=== PATIENT | female | born 1980 | race Two or more races ===

== ENCOUNTER 2023-08-19 18:26 | Emergency (ER) | payer MEDICAID ==
[~2023-08-19] VITALS: Ht 165.1 cm; Wt 81.0 kg
[2023-08-19] MEDS ORDERED: IBUP-45 PO (18:30)
[2023-08-19] MEDS ORDERED: IBUPROFEN 800 MG TABLET PO ONE (19:30)
[2023-08-19] MEDS ORDERED: ACETAMINOPHEN 500 MG TABLET PO ONE (19:30)
[2023-08-19 19:42] LABS: COVID AG,FIA SOURCE NASAL SWAB
[2023-08-19 19:48] LABS: APPEARANCE,URINE CLEAR (CLEAR); BILIRUBIN,URINE NEGATIVE (NEGATIVE); COLOR,URINE LIGHT YELLOW (YELLOW); GLUCOSE, URINE (UA) NEGATIVE (NEGATIVE); KETONES,URINE NEGATIVE (NEGATIVE); LEUKOCYTE ESTERASE ,URINE SMALL (NEGATIVE); NITRATE,URINE POSITIVE (NEGATIVE); OCCULT BLOOD,URINE MODERATE (NEGATIVE); PROTEIN,URINE TRACE mg/dL (NEGATIVE); UROBILINOGEN,URINE <=1.0 mg/dL (<=1.0)
[2023-08-19 20:06] LABS: SARS-COV2 (COVID) ANTIGEN,FIA Negative (Negative)
[2023-08-19 20:07] LABS: INFLUENZA TYPE A NEGATIVE FOR TYPE A (NEGATIVE); INFLUENZA TYPE B NEGATIVE FOR TYPE B (NEGATIVE)
[2023-08-19 20:20] LABS: BACTERIA,URINE Moderate /HPF (None Seen); RBC,URINE 0-2 /HPF (0-2); SQUAMOUS EPITHELIAL CELL,UR Few /LPF (None Seen)
[2023-08-19] MEDS ORDERED: SODIUM CHLORIDE 0.9% 1,000 ML IV ONE (20:45)
[2023-08-19 21:16] LABS: BASOPHILS % (AUTO) 0.3 % (0.0-2.0); EOSINOPHILS % (AUTO) 0.2 % (1.0-6.0); HEMATOCRIT 34.1 % (36-46); HEMOGLOBIN 11.1 g/dL (12.0-16.0); LYMPHOCYTES # (AUTO) 0.7 K/uL (1.0-4.8); LYMPHOCYTES % (AUTO) 9.1 % (22.0-44.0); MEAN CORPUSCULAR HEMOGLOBIN 25.1 pg (26.0-34.0); MEAN CORPUSCULAR HGB CONC 32.6 G/dL (31.0-37.0); MEAN CORPUSCULAR VOLUME 77 fL (80-100); MONOCYTES # (AUTO) 0.6 K/uL (0.1-1.0); MONOCYTES % (AUTO) 7.2 % (2.0-9.0); NEUTROPHILS # (AUTO) 6.8 K/uL (1.8-7.7); NEUTROPHILS % (AUTO) 83.2 % (40.0-70.0); PLATELET COUNT (AUTO) 247 K/uL (150-450); RED BLOOD CELL COUNT(AUTO) 4.43 MIL/uL (4.00-5.20); RED CELL DISTRIBUTION WIDTH 17.3 % (11.5-14.5); WHITE BLOOD COUNT (AUTO) 8.1 K/uL (4.5-11.0)
[2023-08-19] MEDS ORDERED: CEPHALEXIN MONOHYDRATE 500 MG CAPSULE PO ONE (21:30)
[2023-08-19 21:33] LABS: ANION GAP 12 mmol/L (8-16); CALCIUM, TOTAL 8.8 mg/dL (8.8-10.5); CARBON DIOXIDE 22 mmol/L (22-29); CHLORIDE 100 mmol/L (98-107); CREATININE 0.91 mg/dL (0.60-1.30); GLOMERULAR FILTR. RATE CALC > 60 mL/min (>60); GLUCOSE,RANDOM 124 mg/dL (70-110); POTASSIUM 3.6 mmol/L (3.5-5.1); SODIUM SERUM 134 mmol/L (136-145); UREA NITROGEN, BLOOD 13 mg/dL (7-18)
[2023-08-19 21:37] LABS: ALANINE AMINOTRANSFERASE 19 U/L (12-78); ALBUMIN 3.3 g/dL (3.4-5.0); ALKALINE PHOSPHATASE 67 U/L (46-116); ASPARTATE AMINOTRANSFERASE 12 U/L (15-37); BILIRUBIN,TOTAL 0.4 mg/dL (0.1-1.0); HCG,QUANTITATIVE < 1 mIU/mL (0-6); LIPASE 25 U/L (16-77); TOTAL PROTEIN, SERUM 7.6 g/dL (6.4-8.2)
[2023-08-19] MEDS ORDERED: CEPH-558 PO ×2 (22:29→22:35)
[2023-08-19 23:30] VITALS: BP 119/63; PULSE 62; RESP 16; TEMP 99.3
== END 2023-08-20 02:00 | disposition home or self-care (01) ==
LOC: EMS 18:28
DX: N39.0 Urinary tract infection, site not specified (principal); Z90.49 Acquired absence of other specified parts of digestive tract; Z98.890 Other specified postprocedural states; Z20.822 Contact with and (suspected) exposure to COVID-19
CPT/HCPCS: 74176; 80053; 81001; 83690; 84702; 85025; 87086; 87186; 87804; 99284

== ENCOUNTER 2024-03-09 10:21 | Emergency (ER) | payer MEDICAID, OTHER ==
[~2024-03-09] VITALS: Ht 167.6 cm; Wt 87.0 kg
[~2024-03-09 10:21] MED LIST: CEPH-558 PO; IBUP-45 PO
[2024-03-09 10:23] VITALS: TEMP 98
[2024-03-09 10:58] LABS: APPEARANCE,URINE TURBID (CLEAR); BILIRUBIN,URINE NEGATIVE (NEGATIVE); COLOR,URINE YELLOW (YELLOW); GLUCOSE, URINE (UA) NEGATIVE (NEGATIVE); KETONES,URINE NEGATIVE (NEGATIVE); LEUKOCYTE ESTERASE ,URINE LARGE (NEGATIVE); NITRATE,URINE POSITIVE (NEGATIVE); OCCULT BLOOD,URINE MODERATE (NEGATIVE); PH,URINE 6.5 (5.0-8.0); PROTEIN,URINE 30-70 mg/dL (NEGATIVE); SPECIFIC GRAVITIY, URINE 1.013 (1.003-1.030); UROBILINOGEN,URINE <=1.0 mg/dL (<=1.0)
[2024-03-09] MEDS: SODIUM CHLORIDE 0.9% 1,000 ML IV ONE (11:07)
[2024-03-09 11:17] LABS: BASOPHILS % (AUTO) 0.2 % (0.0-2.0); EOSINOPHILS % (AUTO) 0.8 % (1.0-6.0); HEMATOCRIT 36.6 % (36-46); HEMOGLOBIN 12.2 g/dL (12.0-16.0); LYMPHOCYTES # (AUTO) 1.2 K/uL (1.0-4.8); LYMPHOCYTES % (AUTO) 17.2 % (22.0-44.0); MEAN CORPUSCULAR HEMOGLOBIN 28.4 pg (26.0-34.0); MEAN CORPUSCULAR HGB CONC 33.3 G/dL (31.0-37.0); MEAN CORPUSCULAR VOLUME 85 fL (80-100); MONOCYTES # (AUTO) 0.6 K/uL (0.1-1.0); MONOCYTES % (AUTO) 7.9 % (2.0-9.0); NEUTROPHILS # (AUTO) 5.4 K/uL (1.8-7.7); NEUTROPHILS % (AUTO) 73.9 % (40.0-70.0); PLATELET COUNT (AUTO) 293 K/uL (150-450); RED BLOOD CELL COUNT(AUTO) 4.31 MIL/uL (4.00-5.20); RED CELL DISTRIBUTION WIDTH 14.3 % (11.5-14.5); WHITE BLOOD COUNT (AUTO) 7.3 K/uL (4.5-11.0)
[2024-03-09 11:32] LABS: ANION GAP 9 mmol/L (8-16); CALCIUM, TOTAL 9.1 mg/dL (8.8-10.5); CARBON DIOXIDE 25 mmol/L (22-29); CHLORIDE 103 mmol/L (98-107); CREATININE 0.82 mg/dL (0.60-1.30); GLOMERULAR FILTR. RATE CALC > 60 mL/min (>60); GLUCOSE,RANDOM 97 mg/dL (70-110); POTASSIUM 3.7 mmol/L (3.5-5.1); SODIUM SERUM 137 mmol/L (136-145); UREA NITROGEN, BLOOD 12 mg/dL (7-18)
[2024-03-09 11:33] LABS: BACTERIA,URINE Few /HPF (None Seen); WBC,URINE >100 /HPF (0-5)
[2024-03-09] MEDS: CefTRIAXone 1 GM/DEXTROSE 50 ML IV ONE (12:41)
[2024-03-09 13:15] VITALS: BP 116/68; PULSE 76; RESP 16
[2024-03-09] MEDS ORDERED: CEPH-558 PO (14:03)
[2024-03-09] MEDS ORDERED: IBUP-1492 PO (14:04)
== END 2024-03-09 14:15 | disposition home or self-care (01) ==
LOC: EMS 10:21
DX: N39.0 Urinary tract infection, site not specified (principal); Z90.49 Acquired absence of other specified parts of digestive tract; Z98.890 Other specified postprocedural states
CPT/HCPCS: 99284; 96365; 96361; 80048; 81001; 85025; 36415; 87086; 87186; J0696; J7030

== ENCOUNTER 2024-08-12 13:21 | Emergency (ER) | payer OTHER ==
[~2024-08-12] VITALS: Ht 160 cm; Wt 86.0 kg
[~2024-08-12 13:21] MED LIST changes: +IBUP-1492 PO; -IBUP-45 PO
[2024-08-12] MEDS: SULFAMETHOX/TRIMETH DS 800-160 MG/TABLET PO ONE (15:20)
[2024-08-12] MEDS: CEPHALEXIN MONOHYDRATE 500 MG CAPSULE PO ONE (15:20)
[2024-08-12] MEDS: LIDOCAINE 1%/EPI 1:200,000/PF 10 ML VIAL ID ONE (15:24)
[2024-08-12 17:26] VITALS: BP 112/70; PULSE 78; RESP 18; TEMP 98.8; O2SAT 99
[2024-08-12] MEDS ORDERED: SULF-261 PO (17:27)
[2024-08-12] MEDS ORDERED: CEPH-558 PO (17:27)
[2024-08-12] MEDS ORDERED: TRAM50TA5 PO (17:27)
== END 2024-08-12 17:41 | disposition home or self-care (01) ==
LOC: EMS 13:34
DX: L02.416 Cutaneous abscess of left lower limb (principal); Z90.49 Acquired absence of other specified parts of digestive tract
CPT/HCPCS: 99283; 10060; J3490

== ENCOUNTER 2024-08-14 16:12 | Emergency (ER) | payer OTHER ==
[~2024-08-14] VITALS: Ht 160 cm; Wt 86.0 kg
[~2024-08-14 16:12] MED LIST changes: -IBUP-1492 PO; +SULF-261 PO; +TRAM50TA5 PO
[2024-08-14 16:15] VITALS: TEMP 98.8
[2024-08-14 17:06] VITALS: BP 108/60; PULSE 68; RESP 14; O2SAT 100
== END 2024-08-14 17:07 | disposition home or self-care (01) ==
LOC: EMS 16:12
DX: Z48.817 Encounter for surgical aftercare following surgery on the skin and subcutaneous tissue (principal); Z90.49 Acquired absence of other specified parts of digestive tract
CPT/HCPCS: 99281; Z7502

== ENCOUNTER 2024-08-17 16:21 | Emergency (ER) | payer OTHER ==
[~2024-08-17] VITALS: Ht 160 cm; Wt 68.0 kg
[2024-08-17 16:23] VITALS: BP 103/56; PULSE 68; RESP 16; TEMP 98.3; O2SAT 100
== END 2024-08-17 17:22 | disposition left against medical advice (07) ==
LOC: EMS 16:21
DX: L02.416 Cutaneous abscess of left lower limb (principal); Z53.21 Procedure and treatment not carried out due to patient leaving prior to being seen by health care provider

== ENCOUNTER 2024-08-18 08:47 | Emergency (ER) | payer OTHER ==
[~2024-08-18] VITALS: Ht 167.6 cm; Wt 86.0 kg
[2024-08-18 09:04] VITALS: TEMP 98.2
[2024-08-18 10:20] VITALS: BP 124/75; PULSE 84; RESP 16; O2SAT 99
== END 2024-08-18 11:03 | disposition home or self-care (01) ==
LOC: EMS 08:49
DX: L02.416 Cutaneous abscess of left lower limb (principal); Z90.49 Acquired absence of other specified parts of digestive tract; Z98.890 Other specified postprocedural states
CPT/HCPCS: 99282; Z7502